=== PATIENT | female | born 1990 | race African-American/Black ===

== ENCOUNTER 2017-03-03 07:07 | Inpatient (IN) ==
[2017-03-03] MEDS ORDERED: CITRIC ACID/SODIUM CITRATE 30 ML UDCUP PO ONE (07:56)
[2017-03-03] MEDS ORDERED: FAMOTIDINE 20 MG/2 ML VIAL IV ONE (07:56)
[2017-03-03] MEDS ORDERED: LACTATED RINGERS 1,000 ML IV ONE (08:04)
[2017-03-03 08:42] LABS: Basophils % 0.5 % (0.0-0.8); Eosinophils % 0.5 % (0.00-10.9); Hematocrit 36.8 VOL% (35.7-47.0); Hemoglobin 12.6 GM/DL (12.0-16.0); Immature Granulocytes % 0.5 %; Immature Granulocytes Absolute 0.02 #; Lymphocytes # 1.2 10*3/uL (1.4-4.0); Lymphocytes % 27.8 % (21.3-54.2); Mean Corpuscular HGB Conc 34.2 GM/DL (32-36); Mean Corpuscular Hemoglobin 31 PG (27-34); Mean Corpuscular Volume 91.5 FL (87-102); Mean Platelet Volume 11.6 FL (9.6-12.0); Monocytes # 0.3 10*3/uL (0.11-0.8); Neutrophils # 2.8 10*3/uL (1.4-7.4); Neutrophils % 63.7 % (38.7-73.9); Platelet Count 123 T/CUMM (130-400); Red Blood Count 4.02 MC/CUMM (3.8-5.5); Red Cell Distribution Width 14.6 % (9.3-17.3); White Blood Count 4.4 T/CUMM (4-12)
[2017-03-03] MEDS: LACTATED RINGERS 1,000 ML IV SCH ×3 (09:50→21:04)
[2017-03-03] MEDS ORDERED: OXYTOCIN/LR 20 UNIT/1,000 ML BAG IV ONE ×2 (10:25→12:19)
--- NOTE | 2017-03-03 10:47 | OB/GYN History & Physical ---
History of Present Illness Chief complaint: Scheduled section History of present illness: Ms. Sims is a 27 year old female at 40 and 2/7 weeks here for repeat section (of note, pt was scheduled for last Tuesday and did not come in, chose to come in today). course uneventful. No medical issues. H/o section x one for FTP after IOL. R/B/A to surgery reviewed. Pt verbalized understanding and is willing to proceed. Home Medications Medication Instructions Recorded Confirmed Type Vit 108/Iron/Folic AC 1 tablet PO DAILY 02/18/17 02/28/17 History [ One Tablet] Allergies Allergy/AdvReac Type Severity Reaction Status Date / Time No Known Allergies Allergy Verified 02/28/17 17:39 Medical,Surgical,& Family Hx - Family History Family History: Reports;: Family Heart Disease (MOTHER), Family Hypertension ( MOTHER), Family Stroke Denies;: Family Anesthesia Reaction, Family Cancer, Family Diabetes, Family Hematology, Family Psychiatric Problems, Additional Family History - Social History Smoking Status: Never smoker Frequency of Alcohol Use: None Type of Drug Use: None 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: Vital Signs Temp Pulse Resp BP Pulse Ox 03/03/17 10:04 98.0 F 91 H 20 132/79 100 General appearance: no acute distress - Head Head exam: Present: normal inspection, normocephalic - Eye Eye exam: Present: EOMI Pupils: Present: DION - Respiratory Respiratory exam: Present: clear to auscultation bilaterally - Cardiovascular Cardiovascular exam: Present: regular rate and rhythm - GI/Abdominal GI/Abdominal exam: Present: soft, other (FHTs reassuring) Assessment and Plan (1) 40 weeks gestation of Status: Acute Current Visit: Yes (2) H/O section Status: Acute Assessment and plan: Plan repeat section Current Visit: Yes Results - Labs CBC & BMP: 03/03/17 08:34
--- NOTE | 2017-03-03 12:35 | Operative Note ---
Date of procedure: 03/03/17 Pre-op diagnosis: 40 2/7 weeks, h/o section x 1, desired repeat Post-op diagnosis: same Procedure: REPEAT Patient taken to the OR where spinal anesthesia placed and adequate. Uribe placed. Patient prepped and draped in sterile fashion. Incision was made 2 finger breadths above symphysis pubis through previous incision and carried down to the underlying fascia. Fascia scored in the midline and incision extended to either side with Sheridan scissors. Rubi clamps then placed superiorly and inferiorly and fascia dissected away from the rectus. Peritoneum then entered sharply. Incision extended bluntly. Leonarda retractor placed. Bladder flap created sharply. Uterus entered sharply and the incision extended sharply. Membranes ruptured. Light meconium fluid noted. Infant delivered in cephalic presentation. Handed off to awaiting NICU team after cord clamped and cut. Placenta delivered. Uterus cleared of clots and debris. Uterus closed in 2 layers with Vicryl suture. Pelvis copiously irrigated. Bleeding noted and repaired just above the bladder with 4.0 vicryl on SH needle. Sugicel placed over uterine incision. Normal uterus, tubes and ovaries. Female in presentation. 7 lbs 2oz. APGARS 9/9. Fascia closed from either side to midline with Vicryl suture. Skin closed with Blayne. Sponge, lap and needle counts correct x2. Patient taken to recovery in stable condition. Anesthesia: regional Surgeon / Physician: Lida Beck District Ranger: Isabel Ness Estimated blood loss: other (600 cc) Specimens: none sent Condition: stable Disposition: PACU Results - Labs CBC & BMP: 03/03/17 08:34 Discharge Plan - Discharge Medications No Action Vit 108/Iron/Folic AC [ One Tablet] 1 tablet PO DAILY - Follow Up or Referral - Forms/Instructions
[2017-03-03] MEDS ORDERED: fentaNYL 100 MCG/2 ML VIAL ONE (12:39)
[2017-03-03] MEDS ORDERED: MORPHINE 10 MG/10 ML VIAL ONE (12:40)
--- NOTE | 2017-03-03 12:48 | Anesthesia Post-Op ---
Anesthesia Post OP - Post Ansesthetic Evaluation Patient seen in post op: Yes Resp: within normal limits CV: within normal limits Mental: within normal limits Temp: within normal limits [id number]: within normal limits Nausea and Vomiting: within normal limits Pain: within normal limits
[2017-03-03 13:07] LABS: Apearance,Urine CLEAR (Clear); Bilirubin,Urine Negative (Negative); Blood, Urine Negative (Negative); Glucose,Urine (UA) Negative (Negative); Ketones,Urine 20 mg/dL (Negative); Nitrite,Urine Negative (Negative); Protein,Urine Negative; RBC,Urine <1 /HPF (0-4); Urine Color Straw (Yellow); Urine Specific Gravity 1.006 (1.001-1.035); Urine Urobilinogen < 2.0 EU/DL (0.2-1.0); WBC,Urine <1 /HPF (0-6)
[2017-03-03] MEDS ORDERED: HYDROmorphone 2 MG/1 ML VIAL IV PRN (15:50)
[2017-03-03] MEDS ORDERED: ONDANSETRON 4 MG/2 ML VIAL IV PRN (15:50)
[2017-03-03] MEDS ORDERED: HYDROmorphone 2 MG/1 ML VIAL ONE (15:50)
[2017-03-03] MEDS ORDERED: ONDANSETRON 4 MG/2 ML VIAL ONE (15:51)
[2017-03-03] MEDS ORDERED: IBUPROFEN 800 MG TABLET PO PRN (15:59)
[2017-03-03] MEDS ORDERED: RHO(D) IMMUNE GLOBULIN 300 MCG SYRINGE IM ONE (15:59)
[2017-03-03] MEDS ORDERED: ACETAMINOPHEN 325 MG TABLET PO PRN (15:59)
[2017-03-03] MEDS ORDERED: MAGNESIUM HYDROXIDE SUSP 30 ML UDCUP PO PRN (15:59)
[2017-03-03] MEDS ORDERED: SIMETHICONE CHEW 80 MG TABLET PO PRN (15:59)
[2017-03-03 20:06] LABS: Basophils % 0.3 % (0.0-0.8); Eosinophils % 0.1 % (0.00-10.9); Hematocrit 34.4 VOL% (35.7-47.0); Hemoglobin 11.7 GM/DL (12.0-16.0); Immature Granulocytes % 0.5 %; Immature Granulocytes Absolute 0.05 #; Lymphocytes # 1.3 10*3/uL (1.4-4.0); Lymphocytes % 13.8 % (21.3-54.2); Mean Corpuscular Hemoglobin 32 PG (27-34); Mean Corpuscular Volume 92.7 FL (87-102); Mean Platelet Volume 11.7 FL (9.6-12.0); Monocytes # 0.6 10*3/uL (0.11-0.8); Monocytes % 6.4 % (1.7-12.7); Neutrophils # 7.2 10*3/uL (1.4-7.4); Neutrophils % 78.9 % (38.7-73.9); Platelet Count 116 T/CUMM (130-400); Red Blood Count 3.71 MC/CUMM (3.8-5.5); Red Cell Distribution Width 14.5 % (9.3-17.3); White Blood Count 9.1 T/CUMM (4-12)
[2017-03-03] MEDS: DOCUSATE SODIUM 100 MG CAPSULE PO SCH (21:11)
[2017-03-04] MEDS: LACTATED RINGERS 1,000 ML IV SCH (05:08)
[2017-03-04 06:25] LABS: Basophils % 0.4 % (0.0-0.8); Eosinophils % 0.3 % (0.00-10.9); Hematocrit 33.5 VOL% (35.7-47.0); Hemoglobin 11.3 GM/DL (12.0-16.0); Immature Granulocytes % 0.3 %; Immature Granulocytes Absolute 0.02 #; Lymphocytes # 1.4 10*3/uL (1.4-4.0); Lymphocytes % 19.9 % (21.3-54.2); Mean Corpuscular HGB Conc 33.7 GM/DL (32-36); Mean Corpuscular Hemoglobin 31 PG (27-34); Mean Corpuscular Volume 92.8 FL (87-102); Mean Platelet Volume 11.8 FL (9.6-12.0); Monocytes # 0.6 10*3/uL (0.11-0.8); Monocytes % 9.4 % (1.7-12.7); Neutrophils # 4.8 10*3/uL (1.4-7.4); Neutrophils % 69.7 % (38.7-73.9); Platelet Count 106 T/CUMM (130-400); Red Blood Count 3.61 MC/CUMM (3.8-5.5); Red Cell Distribution Width 14.5 % (9.3-17.3); White Blood Count 6.8 T/CUMM (4-12)
[2017-03-04] MEDS: MULTIVITAMIN (PRENATAL) TABLET PO SCH (10:40)
[2017-03-04] MEDS: DOCUSATE SODIUM 100 MG CAPSULE PO SCH ×2 (10:40→20:09)
--- NOTE | 2017-03-04 11:29 | OB/GYN Progress Note ---
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
[2017-03-05] MEDS: DOCUSATE SODIUM 100 MG CAPSULE PO SCH (10:13)
[2017-03-05] MEDS: MULTIVITAMIN (PRENATAL) TABLET PO SCH (10:13)
--- NOTE | 2017-03-05 11:17 | Discharge Summary ---
Hospital Course - Hospital Course Hospital Course: Feels good this morning. Routine post op course Ready to go home. Diagnosis - Discharge Diagnosis (1) 40 weeks gestation of Status: Acute (2) H/O section Status: Acute Specialty Discharge - Follow Up or Referrals Discharge Plan - Discharge Data Disposition: Disch To Home/Self Care Condition at Discharge: Stable Discharge Diet: advance to your usual diet Activity: other (routine post op) Hygiene: may shower Weight Bearing at Discharge: full weight bearing Driving: not for (2 weeks) Contact your physician if you experience:: fever over 101, Difficulty voiding, Redness or swelling - Discharge Medications New Docusate Sodium Cap [Colace Cap] 100 mg PO BID #30 capsule HYDROcodone/ACETAMIN 5-325 [Jupiter 5-325] 2 tablet PO Q6H PRN #20 tablet PRN Reason: Pain Severe (8-10) Ibuprofen Tab [Motrin Tab] 800 mg PO Q8H PRN #30 tablet PRN Reason: Pain Severe (8-10) No Action Vit 108/Iron/Folic AC [ One Tablet] 1 tablet PO DAILY - Follow Up or Referral - Forms/Instructions Instructions: Section (DC), Perineal Care (DC), Bleeding (DC) Exam - Constitutional Vitals: Period Temp Pulse Resp BP Sys/Cherry Pulse Ox Last 24 Hr 97.0 F-98.9 F 82-98 18-20 114-125/64-75 97-100 General appearance: no acute distress - Head Head exam: Present: normal inspection - Eye Eye exam: Present: EOMI Pupils: Present: DION - GI/Abdominal GI/Abdominal exam: Present: other (Incision intact) DS: Provider Date of admission: 03/03/17 07:07 Primary care physician: . No PCP Attending physician on admission: Lida Beck MD Consults: 03/03/17 15:59 Consult to Fire Control System Installer [CONS] Routine Consult Fire Control System Installer: Breast Feeding Discharging clinician: Lida Beck MD
[2017-03-05 11:54] VITALS: BP 132/71
== END 2017-03-05 12:00 | disposition home or self-care (01) | DRG 540 ==
LOC: N.LD 07:07 → N.OB 15:59
PROVIDERS: ADMIT Obstetrics & Gynecology; ATTEND Obstetrics & Gynecology
PROC: LDCSECT (ICD-10-PCS; 2017-03-03 11:00)